=== PATIENT | female | born 1945 | race Caucasian/White ===

== ENCOUNTER → 2016-04-06 | Outpatient (REF) | payer MEDICARE, MEDICAID | LOC: M LAB REF 04-04 15:30 | PROVIDERS: ATTEND Internal Medicine | DX: N39.0 Urinary tract infection, site not specified (principal) ==

== ENCOUNTER → 2016-07-05 | Outpatient (REF) | payer MEDICARE, MEDICAID ==
[2016-07-05 10:44] LABS: ANION GAP 9 MEQ/L (8-16); BLOOD UREA NITROGEN 11 MG/DL (7-18); CALCIUM LEVEL 8.4 MG/DL (8.8-10.2); CARBON DIOXIDE LEVEL 27 MEQ/L (21-32); CHLORIDE LEVEL 105 MEQ/L (98-107); CREATININE FOR GFR 0.68 MG/DL (0.55-1.02); GLOMERULAR FILTRATION RATE > 60.0 (>45); GLUCOSE, FASTING 104 MG/DL (80-110); POTASSIUM SERUM 4.3 MEQ/L (3.5-5.1); SODIUM LEVEL 141 MEQ/L (136-145)
== END ==
LOC: M LAB REF 10:02
PROVIDERS: ATTEND Internal Medicine
DX: I10 Essential (primary) hypertension (principal); E78.2 Mixed hyperlipidemia; G30.9 Alzheimer's disease, unspecified

== ENCOUNTER → 2016-07-13 | Outpatient (REF) | payer MEDICARE, MEDICAID ==
[2016-07-13 21:05] LABS: BASO # 0.1 K/mm3 (0.0-0.2); BASO % 0.8 % (0.0-1.0); EOS # 0.3 K/mm3 (0.0-0.50); EOS % 3.8 % (0.0-3.0); LARGE UNSTAINED CELL # 0.2 K/mm3 (0.0-0.4); LARGE UNSTAINED CELL % 2.1 % (0.0-4.0); LYMPH # 2.5 K/mm3 (1.5-4.5); LYMPH % 33.4 % (24.0-44.0); MEAN CORPUSCULAR HEMOGLOBIN 31.4 pg (27.0-33.0); MEAN CORPUSCULAR HGB CONC 33.4 g/dl (32.0-36.5); MEAN CORPUSCULAR VOLUME 93.8 fl (80.0-96.0); MONO # 0.5 K/mm3 (0.0-0.8); MONO % 6.5 % (0.0-5.0); NEUTROPHILS # 3.9 K/mm3 (1.8-7.7); NEUTROPHILS % 53.4 % (36.0-66.0); PLATELET COUNT, AUTOMATED 311 k/mm3 (150-450); RED CELL DISTRIBUTION WIDTH 11.9 % (11.5-14.5); WHITE BLOOD COUNT 7.4 K/mm3 (4.0-10.0)
[2016-07-13 21:21] LABS: ALBUMIN 3.4 GM/DL (3.2-5.2); ALBUMIN/GLOBULIN RATIO 0.94 (1.00-1.93); BILIRUBIN,TOTAL 0.2 MG/DL (0.2-1.0); CALCIUM LEVEL 8.2 MG/DL (8.8-10.2); CREATININE FOR GFR 1.07 MG/DL (0.55-1.02); GLOMERULAR FILTRATION RATE 54.1 (>45)
== END ==
LOC: M LAB REF 20:13
PROVIDERS: ATTEND Internal Medicine
DX: G30.9 Alzheimer's disease, unspecified (principal)

== ENCOUNTER → 2016-08-25 | Outpatient (REF) | payer MEDICARE, MEDICAID ==
[2016-08-25 19:51] LABS: ALBUMIN 3.3 GM/DL (3.2-5.2); ALBUMIN/GLOBULIN RATIO 0.92 (1.00-1.93); ALKALINE PHOSPHATASE 77 U/L (45-117); ALT/SGPT 24 U/L (12-78); ANION GAP 5 MEQ/L (8-16); AST/SGOT 20 U/L (15-37); BILIRUBIN,TOTAL 0.2 MG/DL (0.2-1.0); BLOOD UREA NITROGEN 15 MG/DL (7-18); CALCIUM LEVEL 8.3 MG/DL (8.8-10.2); CARBON DIOXIDE LEVEL 30 MEQ/L (21-32); CHLORIDE LEVEL 106 MEQ/L (98-107); CREATININE FOR GFR 0.66 MG/DL (0.55-1.02); GLOMERULAR FILTRATION RATE > 60.0 (>45); GLUCOSE, FASTING 98 MG/DL (80-110); POTASSIUM SERUM 4.1 MEQ/L (3.5-5.1); SODIUM LEVEL 141 MEQ/L (136-145); TOTAL PROTEIN 6.9 GM/DL (6.4-8.2)
== END ==
LOC: M LAB REF 14:00
PROVIDERS: ATTEND Internal Medicine
DX: G30.9 Alzheimer's disease, unspecified (principal)

== ENCOUNTER 2016-12-08 12:42 | Emergency (ER) | payer MEDICARE, MEDICAID ==
[~2016-12-08] VITALS: Ht 165.1 cm; Wt 80.9 kg
[2016-12-08] MEDS ORDERED: SERT50TA PO (13:00)
[2016-12-08] MEDS ORDERED: VALP250S PO (13:00)
[2016-12-08] MEDS ORDERED: DONETAB6 PO (13:00)
[2016-12-08] MEDS ORDERED: RISP1SOL PO (13:00)
[2016-12-08] MEDS ORDERED: AMLO5TAB2 PO (13:00)
[2016-12-08 13:10] VITALS: BP 138/65
--- NOTE | 2016-12-08 14:32 | REP ---
PELVIS BILATERAL HIP STUDY: FIVE VIEWS. HISTORY: Trauma. FINDINGS: AP view of the pelvis and AP and frog-leg views of both hips are obtained. The bony pelvic ring is intact. No pelvic fracture is seen. No hip fracture is observed on either side. Femoral heads are smooth and rounded, and hip joint spaces are preserved. There is trochanteric spurring visible bilaterally affecting the greater trochanters. Incidental note is made of a 4.0 cm spherical soft tissue density in the subcutaneous fat lateral to the right proximal femur. This is of uncertain significance. Also noted is a 2.2 cm irregular calcification in the left pelvis which is most likely calcification in a lymph node. Less likely urinary tract calcification. IMPRESSION: 1. No evidence of hip fracture or pelvic fracture on either side. 2. Bilateral greater trochanteric spurring. 3. A 4 cm spherical soft tissue mass projecting in the subcutaneous fat lateral to the proximal femur on the right side. Uncertain significance. 4. Irregular calcific density left hemipelvis 2.2 cm in greatest diameter most likely calcified lymph node. Less likely urinary tract calculus. Signed by Ralph López MD 12/08/2016 03:58 P
--- NOTE | 2016-12-12 10:52 | ED PDOC ---
Post-Departure Follow-Up bilateral hip films faxed formal report to dr blake. Omar Waggoner MD Dec 12, 2016 10:52
== END 2016-12-08 14:42 | disposition home or self-care (01) ==
LOC: M ED 12:42
DX: S70.10XA Contusion of unspecified thigh, initial encounter (principal); X58.XXXA Exposure to other specified factors, initial encounter; Y92.89 Other specified places as the place of occurrence of the external cause; Y93.89 Activity, other specified; Y99.8 Other external cause status; D17.39 Benign lipomatous neoplasm of skin and subcutaneous tissue of other sites; I10 Essential (primary) hypertension

== ENCOUNTER → 2016-12-22 | Outpatient (REF) | payer MEDICARE, MEDICAID ==
[~2016-12-22] MED LIST: AMLO5TAB2 PO; DONETAB6 PO; RISP1SOL PO; SERT50TA PO; VALP250S PO
[2016-12-22 09:51] LABS: BASO % 0.6 % (0.0-1.0); EOS # 0.5 10^3/uL (0.0-0.50); EOS % 8.9 % (0.0-3.0); IMMATURE GRANULOCYTE % 0.2 % (0-0); LYMPH # 1.9 10^3/uL (1.5-4.5); LYMPH % 36.4 % (24.0-44.0); MEAN CORPUSCULAR HEMOGLOBIN 31.8 pg (27.0-33.0); MEAN CORPUSCULAR HGB CONC 33.4 g/dl (32.0-36.5); MEAN CORPUSCULAR VOLUME 95.1 fl (80.0-96.0); MONO # 0.9 10^3/uL (0.0-0.8); MONO % 16.8 % (0.0-5.0); NEUTROPHILS # 1.9 10^3/uL (1.8-7.7); NEUTROPHILS % 37.1 % (36.0-66.0); PLATELET COUNT, AUTOMATED 185 10^3/uL (150-450); RED CELL DISTRIBUTION WIDTH 12.8 % (11.5-14.5); WHITE BLOOD COUNT 5.2 10^3/uL (4.0-10.0)
[2016-12-22 10:41] LABS: ALBUMIN 2.5 GM/DL (3.2-5.2); ALBUMIN/GLOBULIN RATIO 0.69 (1.00-1.93); ALKALINE PHOSPHATASE 60 U/L (45-117); ALT/SGPT 16 U/L (12-78); ANION GAP 5 MEQ/L (8-16); AST/SGOT 23 U/L (15-37); BILIRUBIN,TOTAL 0.4 MG/DL (0.2-1.0); BLOOD UREA NITROGEN 17 MG/DL (7-18); CALCIUM LEVEL 8.4 MG/DL (8.8-10.2); CARBON DIOXIDE LEVEL 33 MEQ/L (21-32); CHLORIDE LEVEL 105 MEQ/L (98-107); CREATININE FOR GFR 0.55 MG/DL (0.55-1.02); GLOMERULAR FILTRATION RATE > 60.0 (>45); GLUCOSE, FASTING 78 MG/DL (80-110); POTASSIUM SERUM 4.2 MEQ/L (3.5-5.1); SODIUM LEVEL 143 MEQ/L (136-145); TOTAL PROTEIN 6.1 GM/DL (6.4-8.2)
== END ==
LOC: M LAB REF 12-21 09:28
PROVIDERS: ATTEND Internal Medicine
DX: G30.9 Alzheimer's disease, unspecified (principal)

== ENCOUNTER 2018-11-12 23:51 | Inpatient (IN) | payer MEDICARE, BC, MEDICAID ==
[~2018-11-12] VITALS: Ht 162.6 cm; Wt 75.8 kg
[~2018-11-12 23:51] MED LIST changes: -AMLO5TAB2 PO; +AMLO5TAB6 PO; +SERT-141 PO; -SERT50TA PO
[2018-11-13] MEDS ORDERED: QUET1TAB7 PO ×2 (00:04→04:29)
[2018-11-13 00:54] LABS: BASO # 0.1 10^3/uL (0.0-0.2); BASO % 0.3 % (0.0-1.0); HEMOGLOBIN 13.2 g/dl (12.0-15.5); LYMPH # 1.8 10^3/uL (1.5-5.0); LYMPH % 5.7 % (24.0-44.0); MEAN CORPUSCULAR HEMOGLOBIN 32.1 pg (27.0-33.0); MEAN CORPUSCULAR HGB CONC 34.7 g/dl (32.0-36.5); MEAN CORPUSCULAR VOLUME 92.5 fl (80.0-96.0); MONO % 6.4 % (0.0-5.0); NEUTROPHILS % 87.1 % (36.0-66.0); PLATELET COUNT, AUTOMATED 206 10^3/uL (150-450); RED BLOOD COUNT 4.11 10^6/uL (4.00-5.40)
[2018-11-13 01:16] LABS: ALT/SGPT 15 U/L (12-78); BILIRUBIN,DIRECT 0.1 MG/DL (0.0-0.2); BILIRUBIN,TOTAL 0.6 MG/DL (0.2-1.0); BLOOD UREA NITROGEN 18 MG/DL (7-18); CALCIUM LEVEL 8.8 MG/DL (8.8-10.2); CARBON DIOXIDE LEVEL 27 MEQ/L (21-32); CHLORIDE LEVEL 101 MEQ/L (98-107); CREATININE FOR GFR 0.71 MG/DL (0.55-1.30); GLOMERULAR FILTRATION RATE > 60.0 (>39); GLUCOSE, FASTING 124 MG/DL (70-100); LIPASE 68 U/L (73-393); POTASSIUM SERUM 4.1 MEQ/L (3.5-5.1); SODIUM LEVEL 137 MEQ/L (136-145); TOTAL PROTEIN 6.7 GM/DL (6.4-8.2)
[2018-11-13] MEDS ORDERED: ISOVUE-370 76% 100ML VIAL (Q9967) As Ordered ONE (02:06)
[2018-11-13] MEDS: NS 1,000 ML IV SCH ×4 (03:09→21:33)
--- NOTE | 2018-11-13 03:27 | REPVR ---
EXAM: CT Abdomen and Pelvis With Contrast EXAM DATE/TIME: 11/13/2018 2:01 AM CLINICAL HISTORY: 73 years old, female; Fever and vomiting; Additional info: Vomiting, fever TECHNIQUE: Imaging protocol: Computed tomography of the abdomen and pelvis with intravenous contrast. Radiation optimization: All CT scans at this facility use at least one of these dose optimization techniques: automated exposure control; mA and/or kV adjustment per patient size (includes targeted exams where dose is matched to clinical indication); or iterative reconstruction. Contrast material: ISO; Contrast volume: 100 ml; Contrast route: HAND; COMPARISON: CR HIPS BILAT W-AP PELVIS 12/08/2016 1:21 PM FINDINGS: Lungs: Bilateral mild groundglass densities of the lungs likely edema. No focal consolidation. Heart: Cardiomegaly partially seen. Liver: Mild diffuse fatty infiltration of liver. Gallbladder and bile ducts: Normal. No calcified stones. No ductal dilation. Pancreas: Normal. No ductal dilation. Spleen: Normal. No splenomegaly. Adrenals: Normal. No mass. Kidneys and ureters: Normal. No hydronephrosis. Stomach and bowel: Unremarkable. No obstruction. No mucosal thickening. Appendix: Base of the appendix measures 7.3 mm. Distal and mid appendix is unremarkable. No surrounding inflammatory changes. Intraperitoneal space: Unremarkable. No free air. No significant fluid collection. Vasculature: Unremarkable. No abdominal aortic aneurysm. Lymph nodes: Unremarkable. No enlarged lymph nodes. Bladder: Unremarkable as visualized. Reproductive: Enlarged uterus with multiple calcifications likely degenerative fibroids. Cyst in the right ovary measuring 17 x 17 mm. Findings abdomen for the patient's age, further evaluation with a nonemergent ultrasound and SHUTTLER CAR consult is recommended. Left adnexa is unremarkable. Bones/joints: Diffuse demineralization of the bones with degenerative changes. Levoscoliosis of the thoracolumbar spine. Soft tissues: Subcutaneous nodule in the right gluteal region measuring 13 mm may represent sebaceous cysts. IMPRESSION: Enlarged uterus with multiple calcifications likely degenerative fibroids. Cyst in the right ovary measuring 17 x 17 mm. Findings abdomen for the patient's age, further evaluation with a nonemergent ultrasound and SHUTTLER CAR consult is recommended. Left adnexa is unremarkable. Base of the appendix measures 7.3 mm. Distal and mid appendix is unremarkable. No surrounding inflammatory changes. Findings are nonspecific. No bowel dilatation or obstruction. Electronically signed by: Barb Khoury On 11/13/2018 03:27:02 AM
[2018-11-13] MEDS ORDERED: cefTRIAXone SOD 1 GM in D5W MINI-BAG PLUS 50 ML IV ONE (03:45)
[2018-11-13] MEDS ORDERED: MOM 30ML SUSPENSION UDC PO PRN (04:15)
[2018-11-13] MEDS ORDERED: ACETAMINOPHEN TAB 650MG DOSE (2X325MG) PO PRN (04:15)
--- NOTE | 2018-11-13 04:19 | HPEPDOC ---
[facility] Medical History & Physical Date of Admission Nov 13, 2018 Date of Service: Nov 13, 2018 History and Physical CHIEF COMPLAINT: Emesis and fever HISTORY OF PRESENT ILLNESS: Patient is a 73 yo female with PMH of postmenopausal bleeding and Alzheimer's disease due to 3 episodes of brown color emesis the day prior to admission. Fever was also noted. Pt is non-verbal at baseline due to dementia; the staff/nun that accompanies her to the ER provided the info above but no further info was able to be obtained and no other symptoms were noted PAST MEDICAL HISTORY: 1. Endometrial polyp 2. Post menopausal bleeding 3. Leiomyomata uteri 4. Tonsillectomy PAST SURGICAL HISTORY: 1. Excision of polyp 2. Dilatation and curettage 3. Suturing of cervix FAMILY HISTORY: Maternal grandmother has iabetes, Father from a ruptured aortic aneurysm. Mother had lung cancer. ALLERGIES: Please see below. REVIEW OF SYSTEMS: Limited ROS was able to be obtained d/t patient's baseline mental status and available info from staff who accompanied her CONSTITUTIONAL: Pos for fever GASTROINTESTINAL: Pos for 3 episodes of emesis HOME MEDICATIONS: Please see below. PHYSICAL EXAMINATION: GENERAL APPEARANCE: Alert, eyes open spontaneously, not in acute distress HEENT: Head normocephalic, atraumatic CARDIOVASCULAR: RRR, no murmur, normal S1 and S2 LUNGS: CTA b/l, no rales, wheezing, or rhonchi ABDOMEN: soft, bowel sound aus in all 4 quad, no distention or guarding EXTREMITIES: radial pulse equal b/l NEUROLOGICAL: Patient non-verbal which was reported to be baseline, not following commands LABORATORY DATA: See below. IMAGING: CT abd/pelvis with IV contrast showed enlarged uterus, multiple calcifications likely degenerative fibroids. Right ovary cyst measuring 17 x 17 mm. Further evaluation with a nonemergent ultrasound and CARBON PAPER MACHINE OPERATOR consult is recommended. MICROBIOLOGY: Please see below. Assessment and Plan 1. UTI -fever, emesis, leukocytosis, UA pos for nitrite and leuk -IV ceftriaxone pending urine Cx -lactic acid and blood cx pending -IVNS 150ml/hr. Zofran PRN 2. Right ovary cyst measuring 17 x 17 mm -shown on CT abd/pelvis -consider f/u outpt 3. Alzheimer's dementia -non-verbal and not following commands, reported to be at baseline -NPO except for meds until bedside swallow study -fall precaution DVT prophylaxis SCD, TEDS, lovenox Vital Signs Vital Signs Date Time Temp Pulse Resp B/P (MAP) Pulse Ox O2 Delivery O2 Flow Rate FiO2 11/13/18 03:04 98.9 82 19 140/90 (107) 95 11/12/18 23:59 Room Air Laboratory Data Labs 24H Laboratory Tests 2 11/13/18 00:44: Immature Granulocyte % (Auto) 0.5, White Blood Count 31.0*H, Red Blood Count 4.11, Hemoglobin 13.2, Hematocrit 38.0, Mean Corpuscular Volume 92.5, Mean Corpuscular Hemoglobin 32.1, Mean Corpuscular Hemoglobin Concent 34.7, Red Cell Distribution Width 11.3L, Platelet Count 206, Neutrophils (%) (Auto) 87.1H, Lym phocytes (%) (Auto) 5.7L, Monocytes (%) (Auto) 6.4H, Eosinophils (%) (Auto) 0.0, Basophils (%) (Auto) 0.3, Neutrophils # (Auto) 27.0H, Lymphocytes # (Auto) 1.8, Monocytes # (Auto) 2.0H, Eosinophils # (Auto) 0.0, Basophils # (Auto) 0.1, Nucleated Red Blood Cells % (auto) 0.0, Anion Gap 9, Glomerular Filtration Rate > 60.0, Calcium Level 8.8, Aspartate Amino Transf (AST/SGOT) 25, Alanine Aminotransferase (ALT/SGPT) 15, Alkaline Phosphatase 71, Total Bilirubin 0.6, Direct Bilirubin 0.1, Total Protein 6.7, Albumin 3.0L, Albumin/Globulin Ratio 0.81L, Lipase 68L 11/13/18 03:00: Urine Color YELLOW, Urine Appearance HAZY, Urine pH 8.0, Urine Specific Mar Lin 1.043, Urine Protein NEGATIVE, Urine Glucose (UA) NEGATIVE, Urine Ketones NEGATIVE, Urine Blood NEGATIVE, Urine Nitrite POSITIVEH, Urine Bilirubin NEGATIVE, Urine Urobilinogen 0.2, Urine Leukocyte Esterase 3+H, Urine WBC (Auto) 61H, Urine RBC (Auto) 1, Urine Hyaline Casts (Auto) 0, Urine Bacteria (Auto) 2+H, Urine Squamous Epithelial Cells 0, Urine Mucus (Auto) SMALL, Urine Sperm (Auto) CBC/BMP Laboratory Tests 11/13/18 00:44 Red Blood Count 4.11, Mean Corpuscular Volume 92.5, Mean Corpuscular Hemoglobin 32.1, Mean Corpuscular Hemoglobin Concent 34.7, Red Cell Distribution Width 11.3 L, Neutrophils (%) (Auto) 87.1 H, Lymphocytes (%) (Auto) 5.7 L, Monocytes (%) (Auto) 6.4 H, Eosinophils (%) (Auto) 0.0, Basophils (%) (Auto) 0.3, Neutrophils # (Auto) 27.0 H, Lymphocytes # (Auto) 1.8, Monocytes # (Auto) 2.0 H, Eosinophils # (Auto) 0.0, Basophils # (Auto) 0.1 Microbiology Microbiology 11/13/18 Urine Culture, Received Pending Home Medications Scheduled Polyethylene Glycol 3350 (Miralax) 17 Gm Powd.pack, 17 GM PO DAILY AFTER 3 DAYS NO BM Quetiapine Fumarate (Quetiapine Fumarate) 25 Mg Tablet, 25 MG PO QHS Sertraline HCl (Sertraline HCl) 50 Mg Tablet, 50 MG PO QHS Valproic Acid (As Sodium Salt) (Valproic Acid) 250 Mg/5 Ml Solution, 500 MG PO QHS Scheduled PRN Lactose-Reduced Food (Ensure Original) 237 Ml Liquid, 237 ML PO TID PRN for MEAL REPLACEMENT Lorazepam (Lorazepam) 2 Mg Tablet, 2 MG PO QID PRN for SEIZURES COULD BE GIVEN EVERY 15 MINUTES Allergies Coded Allergies: lisinopril (Verified Allergy, Mild, RASH, 11/13/18) A-FIB/CHADSVASC A-FIB History Current/History of A-Fib/PAF?: No CARMEN MAYO DO Nov 13, 2018 04:19 MARY CARMEN LE DO Nov 13, 2018 05:49
[2018-11-13] MEDS ORDERED: LORA2TAB14 PO (04:29)
[2018-11-13] MEDS ORDERED: VALP250S PO (04:29)
[2018-11-13] MEDS ORDERED: ENSULIQ19 PO (04:29)
[2018-11-13] MEDS ORDERED: SERT50TA29 PO (04:29)
[2018-11-13] MEDS ORDERED: MIRA1POW3 PO (04:29)
[2018-11-13] MEDS ORDERED: ONDANSETRON 4MG/2ML VIAL (J2405) IV PRN (04:30)
[2018-11-13] MEDS ORDERED: LORazepam 2 MG TAB PO PRN (04:45)
[2018-11-13 07:35] VITALS: BP 121/72
[2018-11-13] MEDS: HEPARIN SOD (PORCINE) 5000 UNITS/ML VIAL SC SCH ×2 (07:47→22:19)
[2018-11-13] MEDS: MIRALAX *UNIT DOSE* 17GM PACKET PO SCH (07:47)
[2018-11-13 14:00] VITALS: BP 122/72
[2018-11-13 22:00] VITALS: BP 113/70
[2018-11-13] MEDS: SERTRALINE HCL 50 MG TAB PO SCH (22:19)
[2018-11-13] MEDS: QUEtiapine FUMARATE 25 MG TAB PO SCH (22:19)
[2018-11-13] MEDS: VALPROIC ACID SYRUP 250 MG/5 ML UDC PO SCH (22:20)
[2018-11-13] MEDS ORDERED: LORazepam 2 MG/ML VIAL (J2060) IV PRN (23:15)
[2018-11-14] MEDS: NS 1,000 ML IV SCH ×3 (03:49→17:38)
[2018-11-14] MEDS: cefTRIAXone SOD 1 GM in D5W MINI-BAG PLUS 50 ML IV SCH (03:49)
[2018-11-14 06:00] VITALS: BP 129/77
[2018-11-14 06:36] LABS: HEMATOCRIT 32.6 % (36.0-47.0); MEAN CORPUSCULAR HGB CONC 33.7 g/dl (32.0-36.5); MEAN CORPUSCULAR VOLUME 94.8 fl (80.0-96.0); PLATELET COUNT, AUTOMATED 168 10^3/uL (150-450); RED BLOOD COUNT 3.44 10^6/uL (4.00-5.40); WHITE BLOOD COUNT 11.4 10^3/uL (4.0-10.0)
[2018-11-14 06:58] LABS: ALBUMIN 2.7 GM/DL (3.2-5.2); ALT/SGPT 11 U/L (12-78); BILIRUBIN,TOTAL 0.2 MG/DL (0.2-1.0); BLOOD UREA NITROGEN 11 MG/DL (7-18); CALCIUM LEVEL 8.1 MG/DL (8.8-10.2); CARBON DIOXIDE LEVEL 27 MEQ/L (21-32); CHLORIDE LEVEL 109 MEQ/L (98-107); CREATININE FOR GFR 0.61 MG/DL (0.55-1.30); GLOMERULAR FILTRATION RATE > 60.0 (>39); GLUCOSE, FASTING 88 MG/DL (70-100); POTASSIUM SERUM 3.9 MEQ/L (3.5-5.1); SODIUM LEVEL 142 MEQ/L (136-145); TOTAL PROTEIN 6.5 GM/DL (6.4-8.2); VALPROIC ACID (DEPAKOTE) 43.7 UG/ML (50.0-100.0)
[2018-11-14] MEDS: HEPARIN SOD (PORCINE) 5000 UNITS/ML VIAL SC SCH ×2 (08:01→21:59)
[2018-11-14] MEDS: MIRALAX *UNIT DOSE* 17GM PACKET PO SCH (08:02)
[2018-11-14 14:00] VITALS: BP 124/85
[2018-11-14] MEDS: VALPROIC ACID SYRUP 250 MG/5 ML UDC PO SCH (21:58)
[2018-11-14] MEDS: QUEtiapine FUMARATE 25 MG TAB PO SCH (21:59)
[2018-11-14] MEDS: SERTRALINE HCL 50 MG TAB PO SCH (21:59)
[2018-11-14 22:00] VITALS: BP 126/84
--- NOTE | 2018-11-14 23:07 | IPNPDOC ---
Text Note Date of Service The patient was seen on 11/14/18. NOTE Subjective: Non verbal patient. Can corroborate that she did not express disc omfort or confirm any discomfort. Her friend from the [facility] was visiting and reported that while it is difficult to assess if she is better, she is more awake. Objective: Vitals: see below GENERAL APPEARANCE: Alert, eyes open spontaneously, not in acute distress HEENT: Head normocephalic, atraumatic, anicteric, no pallor CARDIOVASCULAR: RRR, no murmur, normal S1 and S2 LUNGS: CTA b/l, no rales, wheezing, or rhonchi ABDOMEN: soft, bowel sound aus in all 4 quad, no distention or guarding on deep palpation EXTREMITIES: warm and well perfused with good pulses and no edema NEUROLOGICAL: Patient non-verbal which was reported to be baseline, not following commands LABORATORY DATA: See below. IMAGING: CT abd/pelvis with IV contrast showed enlarged uterus, multiple calcifications likely degenerative fibroids. Right ovary cyst measuring 17 x 17 mm. Further evaluation with a nonemergent ultrasound and FITNESS AND WELLNESS INSTRUCTOR consult is recommended. MICROBIOLOGY: Please see below. 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 1. UTI -fever, emesis, leukocytosis, UA pos for nitrite and leuk -IV ceftriaxone pending urine Cx -blood cx negative to date 2. Right ovary cyst measuring 17 x 17 mm -shown on CT abd/pelvis -f/u outpt 3. Alzheimer's dementia -non-verbal and not following commands, reported to be at baseline -fall precaution DVT prophylaxis SCD, TEDS, lovenox VS,Fishbone, I+O VS, Fishbone, I+O Laboratory Tests 11/14/18 06:01 Red Blood Count 3.44 L, Mean Corpuscular Volume 94.8, Mean Corpuscular Hemoglobin 32.0, Mean Corpuscular Hemoglobin Concent 33.7, Red Cell Distribution Width 11.6, Calcium Level 8.1 L, Aspartate Amino Transf (AST/SGOT) 15, Alanine Aminotransferase (ALT/SGPT) 11 L, Alkaline Phosphatase 59, Total Bilirubin 0.2 #, Total Protein 6.5, Albumin 2.7 L Vital Signs Date Time Temp Pulse Resp B/P (MAP) Pulse Ox O2 Delivery O2 Flow Rate FiO2 11/14/18 14:00 97.9 66 17 124/85 (98) 93 11/13/18 07:28 Room Air I&O- Last 24 Hours up to 6 AM 11/14/18 06:00 Intake Total 1050 ml Output Total 0 ml Balance 1050 ml PARAG TALAMANTES MD Nov 14, 2018 23:07
[2018-11-15] MEDS: NS 1,000 ML IV SCH ×3 (00:08→13:57)
[2018-11-15] MEDS: cefTRIAXone SOD 1 GM in D5W MINI-BAG PLUS 50 ML IV SCH (03:27)
[2018-11-15 06:00] VITALS: BP 130/70
[2018-11-15 07:09] LABS: HEMATOCRIT 30.8 % (36.0-47.0); HEMOGLOBIN 10.1 g/dl (12.0-15.5); MEAN CORPUSCULAR HEMOGLOBIN 31.6 pg (27.0-33.0); MEAN CORPUSCULAR HGB CONC 32.8 g/dl (32.0-36.5); MEAN CORPUSCULAR VOLUME 96.3 fl (80.0-96.0); PLATELET COUNT, AUTOMATED 163 10^3/uL (150-450); WHITE BLOOD COUNT 6.9 10^3/uL (4.0-10.0)
[2018-11-15 07:26] LABS: BLOOD UREA NITROGEN 7 MG/DL (7-18); CALCIUM LEVEL 8.3 MG/DL (8.8-10.2); CARBON DIOXIDE LEVEL 21 MEQ/L (21-32); CHLORIDE LEVEL 114 MEQ/L (98-107); GLOMERULAR FILTRATION RATE > 60.0 (>39); GLUCOSE, FASTING 82 MG/DL (70-100); POTASSIUM SERUM 3.8 MEQ/L (3.5-5.1); SODIUM LEVEL 143 MEQ/L (136-145)
[2018-11-15] MEDS: HEPARIN SOD (PORCINE) 5000 UNITS/ML VIAL SC SCH (08:46)
[2018-11-15] MEDS: MIRALAX *UNIT DOSE* 17GM PACKET PO SCH (08:46)
[2018-11-15] MEDS ORDERED: BACTRIM 160MG/800MG DS TAB PO SCH (09:00)
[2018-11-15] MEDS ORDERED: SULF1TAB93 PO (11:54)
--- NOTE | 2018-11-15 19:17 | DS.PDOC ---
Discharge Summary General Date of Admission Nov 13, 2018 at 05:42 Date of Discharge 11/15/2018 Attending Physician: PARAG TALAMANTES MD Discharge Summary PROCEDURES PERFORMED DURING STAY: [None]. ADMITTING DIAGNOSES: 1. Pyelonephritis DISCHARGE DIAGNOSES: 1. 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 HOSPITAL COURSE: In the ED she was found to have a positive UA while a CT A/P showed an incidental large ovarian cyst while her WBC was 31 and predominantly PMNs. Blood and urine cultures were collected and she was started on ceftriaxone. She was admitted to the floor where she was started on fluids. By day 2, her leukocytosis greatly improved and she was maintained on ceftriaxone while the urine culture was pending. Blood cultures were eventually negative while the urine culture grew E.coli that was sensitive to Bactrim. 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 The rest of her course was otherwise unremarkable and her baseline medication were continued as described below: 1. Cystitis -fever, emesis, leukocytosis, UA pos for nitrite and leuk -Was treated with IV ceftriaxone and switched to Bactrim to finish a 14 day course at home -blood cultures were negative 2. A right ovary cyst measuring 17 x 17 mm was incidentally noted on the CT abdomen pelvis and was deferred for outpatient investigations and management 3. Alzheimer's dementia, depression -non-verbal and not following commands, reported to be at baseline -continued home quetiapine, sertraline, valproic acid and PRN lorazepam DISCHARGE MEDICATIONS: Please see below. ALLERGIES: Please see below. PHYSICAL EXAMINATION ON DISCHARGE: VITAL SIGNS: Please see below. GENERAL APPEARANCE: Alert, eyes open spontaneously, not in acute distress HEENT: Head normocephalic, atraumatic, anicteric, no pallor CARDIOVASCULAR: RRR, no murmur, normal S1 and S2 LUNGS: CTA b/l, no rales, wheezing, or rhonchi ABDOMEN: soft, bowel sound aus in all 4 quad, no distention or guarding on deep palpation EXTREMITIES: warm and well perfused with good pulses and no edema NEUROLOGICAL: Patient non-verbal which was reported to be baseline, not following commands LABORATORY DATA: Please see below. IMAGING: CT abdomen pelvis: FINDINGS: Lungs: Bilateral mild groundglass densities of the lungs likely edema. No focal consolidation. Heart: Cardiomegaly partially seen. Liver: Mild diffuse fatty infiltration of liver. Gallbladder and bile ducts: Normal. No calcified stones. No ductal dilation. Pancreas: Normal. No ductal dilation. Spleen: Normal. No splenomegaly. Adrenals: Normal. No mass. Kidneys and ureters: Normal. No hydronephrosis. Stomach and bowel: Unremarkable. No obstruction. No mucosal thickening. Appendix: Base of the appendix measures 7.3 mm. Distal and mid appendix is unremarkable. No surrounding inflammatory changes. Intraperitoneal space: Unremarkable. No free air. No significant fluid collection. Vasculature: Unremarkable. No abdominal aortic aneurysm. Lymph nodes: Unremarkable. No enlarged lymph nodes. Bladder: Unremarkable as visualized. Reproductive: Enlarged uterus with multiple calcifications likely degenerative fibroids. Cyst in the right ovary measuring 17 x 17 mm. Findings abdomen for the patient's age, further evaluation with a nonemergent ultrasound and CRIMINAL DEFENSE LAWYER consult is recommended. Left adnexa is unremarkable. Bones/joints: Diffuse demineralization of the bones with degenerative changes. Levoscoliosis of the thoracolumbar spine. Soft tissues: Subcutaneous nodule in the right gluteal region measuring 13 mm may represent sebaceous cysts. IMPRESSION: Enlarged uterus with multiple calcifications likely degenerative fibroids. Cyst in the right ovary measuring 17 x 17 mm. Findings abdomen for the patient's age, further evaluation with a nonemergent ultrasound and CRIMINAL DEFENSE LAWYER consult is recommended. Left adnexa is unremarkable. Base of the appendix measures 7.3 mm. Distal and mid appendix is unremarkable. No surrounding inflammatory changes. Findings are nonspecific. No bowel dilatation or obstruction. PROGNOSIS: good from an infection status point, however fair overall given end stage Alzheimers ACTIVITY: As tolerated DIET: Regular DISCHARGE PLAN: Home DISPOSITION: 01 Home, Self-Care. DISCHARGE INSTRUCTIONS: 1. Please accompany patient to be seen by PCP within 10 days of discharge ITEMS TO FOLLOWUP ON ON OUTPATIENT: 1. Resolution of cystitis DISCHARGE CONDITION: Stable TIME SPENT ON DISCHARGE: Greater than 30 minutes. Vital Signs/I&Os Vital Signs Date Time Temp Pulse Resp B/P (MAP) Pulse Ox O2 Delivery O2 Flow Rate FiO2 11/15/18 06:00 98.0 69 18 130/70 (90) 94 11/13/18 07:28 Room Air I&O- Last 24 Hours up to 6 AM 11/15/18 06:00 Intake Total 1985 ml Output Total 0 ml Balance 1985 ml Laboratory Data Labs 24H Laboratory Tests 2 11/15/18 06:16: Nucleated Red Blood Cells % (auto) 0.0, Anion Gap 8, Glomerular Filtration Rate > 60.0, Blood Urea Nitrogen 7, Creatinine 0.50L, Sodium Level 143, Potassium Level 3.8, Chloride Level 114H, Carbon Dioxide Level 21, Calcium Level 8.3L CBC/BMP Laboratory Tests 11/15/18 06:16 Red Blood Count 3.20 L, Mean Corpuscular Volume 96.3 H, Mean Corpuscular Hemoglobin 31.6, Mean Corpuscular Hemoglobin Concent 32.8, Red Cell Distribution Width 11.6, Calcium Level 8.3 L Microbiology Microbiology 11/13/18 Blood Culture - Preliminary, Resulted No Growth after 48 hours. All Specime... 11/13/18 Blood Culture - Preliminary, Resulted No Growth after 48 hours. All Specime... 11/14/18 Stool Occult Blood (AMANDA) - Final, Complete 11/13/18 Urine Culture - Final, Complete Escherichia Coli Discharge Medications Scheduled Polyethylene Glycol 3350 (Miralax) 17 Gm Powd.pack, 17 GM PO DAILY, (Reported) AFTER 3 DAYS NO BM Quetiapine Fumarate (Quetiapine Fumarate) 25 Mg Tablet, 25 MG PO QHS, (Reported) Sertraline HCl (Sertraline HCl) 50 Mg Tablet, 50 MG PO QHS, (Reported) Sulfamethoxazole/Trimethoprim (Sulfamethoxazole-Tmp Ds Tablet) 1 Each Tablet, 1 TAB PO BID Valproic Acid (As Sodium Salt) (Valproic Acid) 250 Mg/5 Ml Solution, 500 MG PO QHS, (Reported) Scheduled PRN Lactose-Reduced Food (Ensure Original) 237 Ml Liquid, 237 ML PO TID PRN for MEAL REPLACEMENT, (Reported) Lorazepam (Lorazepam) 2 Mg Tablet, 2 MG PO QID PRN for SEIZURES, (Reported) COULD BE GIVEN EVERY 15 MINUTES Allergies Coded Allergies: lisinopril (Verified Allergy, Mild, RASH, 11/13/18) PARAG TALAMANTES MD Nov 15, 2018 19:17
== END 2018-11-15 14:06 | disposition home or self-care (01) | DRG 690 ==
LOC: M ED 23:51 → M ED INP 11-13 05:42 → M MSPAV 11-13 07:34
PROVIDERS: ADMIT Internal Medicine; ATTEND Internal Medicine
DX: N30.00 Acute cystitis without hematuria (principal); N10 Acute pyelonephritis; F02.80 Dementia in other diseases classified elsewhere, unspecified severity, without behavioral disturbance, psychotic disturbance, mood disturbance, and anxiety; N83.201 Unspecified ovarian cyst, right side; B96.20 Unspecified Escherichia coli [E. coli] as the cause of diseases classified elsewhere; G30.9 Alzheimer's disease, unspecified; Z79.899 Other long term (current) drug therapy; Z88.8 Allergy status to other drugs, medicaments and biological substances

== ENCOUNTER 2018-11-19 17:30 | Observation (INO) | payer MEDICARE, MEDICAID ==
[~2018-11-19] VITALS: Ht 162.6 cm; Wt 73.2 kg
[~2018-11-19 17:30] MED LIST changes: +ENSULIQ19 PO; +LORA2TAB9 PO; +MIRA1POW3 PO; +QUET1TAB7 PO; +SERT-155 PO; +SULF1TAB93 PO
[2018-11-19] MEDS ORDERED: NS 1,000 ML IV SCH (17:35)
[2018-11-19 17:56] LABS: BASO # 0.1 10^3/uL (0.0-0.2); BASO % 0.6 % (0.0-1.0); EOS # 0.2 10^3/uL (0.0-0.5); EOS % 2.2 % (0.0-3.0); HEMATOCRIT 34.7 % (36.0-47.0); HEMOGLOBIN 11.5 g/dl (12.0-15.5); LYMPH # 1.3 10^3/uL (1.5-5.0); LYMPH % 11.6 % (24.0-44.0); MEAN CORPUSCULAR HEMOGLOBIN 31.9 pg (27.0-33.0); MEAN CORPUSCULAR HGB CONC 33.1 g/dl (32.0-36.5); MEAN CORPUSCULAR VOLUME 96.4 fl (80.0-96.0); MONO # 1.2 10^3/uL (0.0-0.8); MONO % 11.4 % (0.0-5.0); NEUTROPHILS % 73.7 % (36.0-66.0); PLATELET COUNT, AUTOMATED 249 10^3/uL (150-450); WHITE BLOOD COUNT 10.8 10^3/uL (4.0-10.0)
[2018-11-19 18:08] LABS: INR 1.04; PROTHROMBIN TIME 13.3 SECONDS (11.8-14.0)
[2018-11-19 18:19] LABS: ALT/SGPT 17 U/L (12-78); BILIRUBIN,DIRECT < 0.1 MG/DL (0.0-0.2); BILIRUBIN,TOTAL < 0.1 MG/DL (0.2-1.0); LIPASE 124 U/L (73-393); TOTAL PROTEIN 6.5 GM/DL (6.4-8.2)
--- NOTE | 2018-11-19 19:26 | ECGEPIP ---
[facility] - ED Test Date: 2018-11-19 Pat Name: MAURILIO TEE Department: Room: - Gender: Female Examination Proctor: ct : 1945 Requested By: Jordana Edwards Order Number: [id number] Reading MD: Emre Peterson Measurements Intervals [place] Rate: 88 P: 38 [place]: 171 QRS: 17 QRSD: 82 T: 14 QT: 372 QTc: 451 Interpretive Statements SINUS RHYTHM LOW QRS VOLTAGE IN PRECORDIAL LEADS NONSPECIFIC T-WAVE ABNORMALITY BASELINE ARTIFACT AFFECTS INTERPRETATION NO PRIORS FOR COMPARISON Electronically Signed on 11-19-2018 19:26:01 EDT by Emre Peterson
[2018-11-19 20:41] LABS: BLOOD UREA NITROGEN 10 MG/DL (7-18); CALCIUM LEVEL 8.4 MG/DL (8.8-10.2); CARBON DIOXIDE LEVEL 26 MEQ/L (21-32); CHLORIDE LEVEL 107 MEQ/L (98-107); CK-MB VALUE MASS 1.5 NG/ML (<3.6); CPK CREATINE PHOSPHOKINASE 57 U/L (26-192); CREATININE FOR GFR 0.79 MG/DL (0.55-1.30); GLOMERULAR FILTRATION RATE > 60.0 (>39); GLUCOSE, FASTING 95 MG/DL (70-100); MB/CK RELATIVE INDEX 2.63 (< OR =4); POTASSIUM SERUM 4.4 MEQ/L (3.5-5.1); SODIUM LEVEL 142 MEQ/L (136-145); TROPONIN I < 0.02 NG/ML (< 0.10)
[2018-11-19] MEDS: SERTRALINE HCL 50 MG TAB PO SCH (21:00)
[2018-11-19] MEDS: VALPROIC ACID SYRUP 250 MG/5 ML UDC PO SCH (21:00)
[2018-11-19] MEDS: QUEtiapine FUMARATE 25 MG TAB PO SCH (21:00)
[2018-11-19] MEDS ORDERED: ISOVUE-370 76% 100ML VIAL (Q9967) As Ordered ONE (21:20)
[2018-11-19] MEDS ORDERED: BACTRIM 160MG/800MG DS TAB PO ONE (21:30)
--- NOTE | 2018-11-19 22:20 | REPVR ---
EXAM: CT Abdomen and Pelvis With Contrast EXAM DATE/TIME: 11/19/2018 9:43 PM CLINICAL HISTORY: 73 years old, female; Abdominal pain; Generalized TECHNIQUE: Imaging protocol: Computed tomography of the abdomen and pelvis with intravenous contrast. Radiation optimization: All CT scans at this facility use at least one of these dose optimization techniques: automated exposure control; mA and/or kV adjustment per patient size (includes targeted exams where dose is matched to clinical indication); or iterative reconstruction. Contrast material: ISOVUE 370; Contrast volume: 100 ml; Contrast route: IV; COMPARISON: CT ABD/PEL W/IV CONTRAST ONLY 11/13/2018 2:21 AM FINDINGS: Lungs: Minimal patchy bibasilar infiltrates and some atelectasis. Calcified granuloma in the right middle lobe. Mediastinum: Minimal hiatal hernia. Liver: The liver attenuation is 120 Hounsfield units and the spleen is 143 Hounsfield units. Gallbladder and bile ducts: Normal. No calcified stones. No ductal dilation. Pancreas: Normal. No ductal dilation. Spleen: Normal. No splenomegaly. Adrenals: Normal. No mass. Kidneys and ureters: Normal. No hydronephrosis. Stomach and bowel: Unremarkable. No obstruction. No mucosal thickening. Appendix: A normal appendix is seen. Intraperitoneal space: Unremarkable. No free air. No significant fluid collection. Vasculature: Unremarkable. No abdominal aortic aneurysm. Lymph nodes: Unremarkable. No enlarged lymph nodes. Bladder: There is bladder wall thickening, however, the bladder is nondistended and is nonspecific. There is slight perivesicular induration. Reproductive: Calcified uterine fibroids with lobular configuration of the uterus. Bones/joints: Lower lumbar facet arthropathy. Soft tissues: Small cystic area in the lateral right pelvis measuring 13 x 20 x 21 mm. Subcutaneous nodule beneath the skin posterior to the right hip measuring 33 x 23 x 35 mm consistent with sebaceous cyst. IMPRESSION: 1. Minimal patchy bibasilar infiltrates and some atelectasis which is similar to the prior study of 11/13/2018. 2. Minimal hiatal hernia. 3. There is bladder wall thickening, however, the bladder is nondistended and is nonspecific. There is some perivesicular induration and cystitis is not excluded. 4. Cyst in the lateral right pelvis measuring 13 x 20 x 21 mm which is unchanged. 5. Sebaceous cyst posterior to the right hip which is unchanged. 6. Lobular uterus with calcifications consistent with fibroids. Electronically signed by: Emmanuel Pittman On 11/19/2018 22:20:08 PM
[2018-11-19 23:05] LABS: APPEARANCE, URINE CLEAR (CLEAR); BACTERIA, URINE AUTO NEGATIVE (NEGATIVE); BILIRUBIN, URINE AUTO NEGATIVE (NEGATIVE); BLOOD, URINE BLOOD NEGATIVE (NEGATIVE); COLOR, URINE STRAW (YELLOW); GLUCOSE, URINE (UA) AUTO NEGATIVE (NEGATIVE); KETONE, URINE AUTO NEGATIVE (NEGATIVE); LEUKOCYTE ESTERASE, URINE AUTO NEGATIVE (NEGATIVE); NITRITE, URINE AUTO NEGATIVE (NEGATIVE); PROTEIN, URINE AUTO NEGATIVE (NEGATIVE); RBC, URINE AUTO 1 /HPF (0-3); SPECIFIC GRAVITY URINE AUTO 1.046 (1.002-1.035); SQUAMOUS EPITHELIAL CELL UR AU 2 /HPF (0-6); UROBILINOGEN, URINE AUTO 0.2 mg/dL (0.0-2.0); WBC, URINE AUTO 2 /HPF (0-3)
[2018-11-20] MEDS ORDERED: SULF1TAB93 PO (00:43)
[2018-11-20] MEDS: D5W/0.9% SODIUM CHLORIDE 1,000 ML IV SCH ×2 (01:28→15:31)
[2018-11-20] MEDS ORDERED: MAALOX 30 ML SUSP *UDC PO PRN (01:30)
[2018-11-20] MEDS ORDERED: MOM 30ML SUSPENSION UDC PO PRN (01:30)
[2018-11-20] MEDS ORDERED: ACETAMINOPHEN TAB 650MG DOSE (2X325MG) PO PRN (01:30)
[2018-11-20] MEDS ORDERED: ONDANSETRON 4MG/2ML VIAL (J2405) IV PRN (01:45)
[2018-11-20] MEDS ORDERED: PANTOPRAZOLE 40MG INJ (PROTONIX) (C9113) IV ONE (01:45)
[2018-11-20] MEDS ORDERED: LORazepam 2 MG TAB PO PRN (01:45)
--- NOTE | 2018-11-20 02:41 | HPEPDOC ---
General Date of Admission Nov 19, 2018 at 17:31 Date of Service: Nov 20, 2018 Chief Complaint The patient is a 73-year-old female admitted with a reason for visit of Coffee Ground Emesis. History of Present Illness Ms. Pimentel is a 73 years old woman with advanced dementia who is non-verbal at baseline. She was recently admitted for pyelonephritis a week ago. She was brought from [place] to ER last night for vomiting coffee ground. No detail information is available. In the ER, pt had normal vitals; afebrile. Labs are fine. Hb 11.5, Cr 0.79. CT abd/pelv: no acute findings (old findings similar to one week ago). PAST MEDICAL HISTORY: Dementia non-verbal, Endometrial polyp, Post menopausal bleeding, Leiomyomata uteri, Tonsillectomy PAST SURGICAL HISTORY: 1. Excision of polyp 2. Dilatation and curettage 3. Suturing of cervix FAMILY HISTORY: Maternal grandmother has iabetes, Father from a ruptured aortic aneurysm. Mother had lung cancer. Home Medications Scheduled Polyethylene Glycol 3350 (Miralax) 17 Gm Powd.pack, 17 GM PO DAILY, (Reported) AFTER 3 DAYS NO BM Quetiapine Fumarate (Quetiapine Fumarate) 25 Mg Tablet, 25 MG PO QHS, (Reported) Sertraline HCl (Sertraline HCl) 50 Mg Tablet, 50 MG PO QHS, (Reported) Sulfamethoxazole/Trimethoprim (Sulfamethoxazole-Tmp Ds Tablet) 1 Each Tablet, 1 TAB PO BID, (Reported) STARTED 11/15/2018 Valproic Acid (As Sodium Salt) (Valproic Acid) 250 Mg/5 Ml Solution, 500 MG PO QHS, (Reported) Scheduled PRN Lactose-Reduced Food (Ensure Original) 237 Ml Liquid, 237 ML PO TID PRN for MEAL REPLACEMENT, (Reported) Lorazepam (Lorazepam) 2 Mg Tablet, 2 MG PO QID PRN for SEIZURES, (Reported) COULD BE GIVEN EVERY 15 MINUTES Allergies Coded Allergies: lisinopril (Verified Allergy, Mild, RASH, 11/13/18) Social History * Smoker: Denies Alcohol: Denies Drugs: denies A-FIB/CHADSVASC A-FIB History Current/History of A-Fib/PAF?: No Review of Systems Other systems Unable to obtain because pt is non verbal Physical Examination General Exam: Positive: Alert, No Acute Distress, Other (pt doesnot communicate or follow commands at baseline) Eye Exam: Positive: PERRLA, Conjunctiva & lids normal ENT Exam: Positive: Atraumatic Neck Exam: Positive: Supple; Negative: JVD Chest Exam: Positive: Clear to auscultation, Normal air movement Heart Exam: Positive: Rate Normal, Regular Rhythm Abdomen Exam: Positive: Normal bowel sounds, Soft; Negative: Tenderness Extremity Exam: Negative: Edema, Normal pulses Skin Exam: Positive: Nl turgor and temperature; Negative: Rash Neuro Exam: Positive: Normal Tone Psych Exam: Negative: Anxiety Vital Signs Vital Signs Date Time Temp Pulse Resp B/P (MAP) Pulse Ox O2 Delivery O2 Flow Rate FiO2 11/20/18 02:01 77 171/81 (111) 94 Room Air 11/20/18 00:30 18 11/19/18 17:45 98.7 Laboratory Data Labs 24H Laboratory Tests 2 11/19/18 17:40: Immature Granulocyte % (Auto) 0.5, White Blood Count 10.8H, Red Blood Count 3.60L, Hemoglobin 11.5L, Hematocrit 34.7L, Mean Corpuscular Volume 96.4H, Mean Corpuscular Hemoglobin 31.9, Mean Corpuscular Hemoglobin Concent 33.1, Red Cell Distribution Width 12.1, Platelet Count 249, Neutrophils (%) (Auto) 73.7H, Lymphocytes (%) (Auto) 11.6L, Monocytes (%) (Auto) 11.4H, Eosinophils (%) (Auto) 2.2, Basophils (%) (Auto) 0.6, Neutrophils # (Auto) 8.0, Lymphocytes # (Auto) 1.3L, Monocytes # (Auto) 1.2H, Eosinophils # (Auto) 0.2, Basophils # (Auto) 0.1, Nucleated Red Blood Cells % (auto) 0.0, Prothrombin Time 13.3, Prothromb Time International Ratio 1.04, Anion Gap 9, Glomerular Filtration Rate > 60.0, Calcium Level 8.4L, Aspartate Amino Transf (AST/SGOT) 19, Alanine Aminotransferase (ALT/SGPT) 17, Alkaline Phosphatase 64, Total Bilirubin < 0.1L, Direct Bilirubin < 0.1, Total Creatine Kinase 57, Creatine Kinase MB 1.5, Creatine Kinase MB Relative Index 2.63, Troponin I < 0.02, Total Protein 6.5, Albumin 3.0L, Albumin/Globulin Ratio 0.86L, Lipase 124 11/19/18 22:56: Urine Appearance CLEAR, Urine Color STRAW, Urine pH 7.0, Urine Specific [place] 1.046, Urine Protein NEGATIVE, Urine Glucose (UA) NEGATIVE, Urine Ketones NEGATIVE, Urine Urobilinogen 0.2, Urine Bilirubin NEGATIVE, Urine Leukocyte Esterase NEGATIVE, Urine Blood NEGATIVE, Urine Nitrite NEGATIVE, Urine WBC (Auto) 2, Urine RBC (Auto) 1, Urine Hyaline Casts (Auto) 0, Urine Bacteria (Auto) NEGATIVE, Urine Squamous Epithelial Cells 2, Urine Sperm (Auto) CBC/BMP Laboratory Tests 11/19/18 17:40 Red Blood Count 3.60 L, Mean Corpuscular Volume 96.4 H, Mean Corpuscular Hemoglobin 31.9, Mean Corpuscular Hemoglobin Concent 33.1, Red Cell Distribution Width 12.1, Neutrophils (%) (Auto) 73.7 H, Lymphocytes (%) (Auto) 11.6 L, Monocytes (%) (Auto) 11.4 H, Eosinophils (%) (Auto) 2.2, Basophils (%) (Auto) 0.6, Neutrophils # (Auto) 8.0, Lymphocytes # (Auto) 1.3 L, Monocytes # (Auto) 1.2 H, Eosinophils # (Auto) 0.2, Basophils # (Auto) 0.1 Microbiology Microbiology 11/19/18 Urine Culture, Received Pending Assessment/Plan Coffee Ground Vomiting, suspect GI bleeding - Keep in Obs - Serial H/H - IV Protonix - Pt is too frail to undergo scoping; conservative management - Anti-emetic prn - aspiration precaution - Clear liquid diet - home meds Plan / VTE VTE Prophylaxis Ordered?: Yes VTE Exclusion Mechanical Proph: N/A:VTE Prophy Ordered VTE Exclusion Pharmacological: Bleeding Risk Plan IVF: Continue Diet: Advance Activity: Continue Current Diagnostics: Repeat Labs in AM Anticipated Discharge: [facility] MARQUITA BERNAL MD Nov 20, 2018 02:41
[2018-11-20 02:45] VITALS: BP 120/80
[2018-11-20 06:00] VITALS: BP 123/81
[2018-11-20 08:53] LABS: HEMATOCRIT 29.4 % (36.0-47.0); HEMOGLOBIN 9.8 g/dl (12.0-15.5); MEAN CORPUSCULAR HEMOGLOBIN 31.2 pg (27.0-33.0); MEAN CORPUSCULAR HGB CONC 33.3 g/dl (32.0-36.5); MEAN CORPUSCULAR VOLUME 93.6 fl (80.0-96.0); PLATELET COUNT, AUTOMATED 235 10^3/uL (150-450); RED BLOOD COUNT 3.14 10^6/uL (4.00-5.40)
[2018-11-20] MEDS ORDERED: BACTRIM 160MG/800MG DS TAB PO SCH (09:00)
[2018-11-20 09:11] LABS: BLOOD UREA NITROGEN 6 MG/DL (7-18); CALCIUM LEVEL 7.9 MG/DL (8.8-10.2); CARBON DIOXIDE LEVEL 24 MEQ/L (21-32); CHLORIDE LEVEL 109 MEQ/L (98-107); GLOMERULAR FILTRATION RATE > 60.0 (>39); GLUCOSE, FASTING 93 MG/DL (70-100); POTASSIUM SERUM 3.7 MEQ/L (3.5-5.1); SODIUM LEVEL 141 MEQ/L (136-145)
--- NOTE | 2018-11-20 10:05 | IPNPDOC ---
Text Note Date of Service The patient was seen on 11/20/18. 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 Per ED, SrVinny Pimentel had 1 episode of coffee ground emesis 1 hour prior to presentation at the ER, as well as, 1 previous episode of similar emesis a week prior to her current presentation. She has advanced dementia and is nonverbal. She is a resident of [facility]. Active Medications: * Pantoprazole 40 mg * Ondansetron 4 mg * Lorazepam 2 mg * Acetaminophen 650 mg * Magnesium Hydroxide * Aluminum Hydrozide Magnesium Hydroxide/Simethicone * Dextrose/Sodium Chloride 1000ml@75 mL/hour * Quetiaprine Fumarate 25 mg * Sertraline HCl 50 mg * Valproic acid 500 mg Review of systems: Unable to obtain-patient nonvocal Objective: Vitals: * BP: 123/81 mm Hg * Temperature: 98.4F * RR: 16 * HR: 86 * O2: 93% Physical Exam: * General: Thin woman with advanced Dementia. She was asleep upon examination and had recently eaten breakfast. She opens her eyes to stimulation but is extremely withdrawn and does not/can not respond to questions with any vocalization. * Heart: Normal S1/S2 heart sounds with no audible rubs, gallops, or murmurs n oted. * Lungs: Clear to auscultation B/L. * Gastrointestinal: Normal bowel sounds present in all 4 quadrants. Pt moves her arms to block palpation of her abdomen. * Psychological: Dementia noted. Pt seems slightly agitated upon waking up. * Skin/extremities: No ulcers or rashes noted. Extremities are well perfused and warm to touch. * Neurologic: Unchanged. Status exam Labs: * CBC 11/19 * WBC 10.8 * Hgb 11.5 * CBC 11/20 * WBC 7.0 * Hgb 9.8 * Urinalysis 11/19 * Clear urine with no bacteria, nitrites, ketones, protein Assessment and Plan: 1. Coffee Ground Vomiting: No vomiting since admission. Continue treatment with Pantoprazole 40 mg IV and Ondansetron 4 mg IV PRN nausea. 2. Anemia: Pt hemoglobin was 11.5 on admission and subsequently fell to 9.8 on 11/20. Serial H&Hs are being performed Q8H to assess for possible GI bleed and have been stable between 9-10 since 11/20. 3. Dementia: Continue providing comforting and appropriate care. Continue mood stabilization with Quetiaprine Fumarate 25 mg, Sertraline HCl 50 mg, and Lorazepam 2 mg 4. Seizure prophylaxis: Continue to treat with Valproic Acid. 5. Disposition: Discharge pending stabilization of hemoglobin and GI consult for possible GI bleed. VS,Fishbone, I+O VS, Fishbone, I+O Laboratory Tests 11/19/18 17:40 Red Blood Count 3.60 L, Mean Corpuscular Volume 96.4 H, Mean Corpuscular Hemoglo bin 31.9, Mean Corpuscular Hemoglobin Concent 33.1, Red Cell Distribution Width 12.1, Neutrophils (%) (Auto) 73.7 H, Lymphocytes (%) (Auto) 11.6 L, Monocytes (%) (Auto) 11.4 H, Eosinophils (%) (Auto) 2.2, Basophils (%) (Auto) 0.6, Neutrophils # (Auto) 8.0, Lymphocytes # (Auto) 1.3 L, Monocytes # (Auto) 1.2 H, Eosinophils # (Auto) 0.2, Basophils # (Auto) 0.1 11/20/18 08:17 Red Blood Count 3.14 L, Mean Corpuscular Volume 93.6, Mean Corpuscular Hemoglobin 31.2, Mean Corpuscular Hemoglobin Concent 33.3, Red Cell Distribution Width 12.3, Calcium Level 7.9 L Vital Signs Date Time Temp Pulse Resp B/P (MAP) Pulse Ox O2 Delivery O2 Flow Rate FiO2 11/20/18 06:00 98.4 86 16 123/81 (95) 93 11/20/18 02:01 Room Air I&O- Last 24 Hours up to 6 AM 11/20/18 06:00 Intake Total 1125 ml Output Total 0 ml Balance 1125 ml ZACHARY MILLARD OMS-3 Nov 20, 2018 10:05 MELONY GILES MD Nov 22, 2018 09:52
[2018-11-20] MEDS: PANTOPRAZOLE 40MG INJ (PROTONIX) (C9113) IV SCH ×2 (10:18→22:17)
[2018-11-20 14:00] VITALS: BP 104/65
[2018-11-20 17:48] LABS: HEMOGLOBIN 10.1 g/dl (12.0-15.5)
[2018-11-20 22:00] VITALS: BP 127/81
[2018-11-20] MEDS: VALPROIC ACID SYRUP 250 MG/5 ML UDC PO SCH (22:17)
[2018-11-20] MEDS: QUEtiapine FUMARATE 25 MG TAB PO SCH (22:17)
[2018-11-20] MEDS: SERTRALINE HCL 50 MG TAB PO SCH (22:17)
[2018-11-21 01:19] LABS: HEMATOCRIT 27.3 % (36.0-47.0); HEMOGLOBIN 9.2 g/dl (12.0-15.5)
[2018-11-21] MEDS: D5W/0.9% SODIUM CHLORIDE 1,000 ML IV SCH (03:22)
[2018-11-21 06:00] VITALS: BP 128/58
[2018-11-21 07:47] LABS: HEMATOCRIT 28.5 % (36.0-47.0); HEMOGLOBIN 9.3 g/dl (12.0-15.5); MEAN CORPUSCULAR HGB CONC 32.6 g/dl (32.0-36.5); PLATELET COUNT, AUTOMATED 210 10^3/uL (150-450); WHITE BLOOD COUNT 3.9 10^3/uL (4.0-10.0)
[2018-11-21 08:06] LABS: BLOOD UREA NITROGEN 3 MG/DL (7-18); CALCIUM LEVEL 7.9 MG/DL (8.8-10.2); CARBON DIOXIDE LEVEL 25 MEQ/L (21-32); CHLORIDE LEVEL 113 MEQ/L (98-107); CREATININE FOR GFR 0.66 MG/DL (0.55-1.30); GLOMERULAR FILTRATION RATE > 60.0 (>39); GLUCOSE, FASTING 88 MG/DL (70-100); POTASSIUM SERUM 3.7 MEQ/L (3.5-5.1); SODIUM LEVEL 144 MEQ/L (136-145)
[2018-11-21] MEDS: PANTOPRAZOLE 40MG INJ (PROTONIX) (C9113) IV SCH ×2 (08:29→21:13)
--- NOTE | 2018-11-21 09:23 | IPNPDOC ---
Text Note Date of Service The patient was seen on 11/21/18. 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 She has advanced dementia with subsequent aphasia. She has not had any more emetic episodes since her admission to [facility]. I spoke to her health care proxy who mentioned that she was interested in possibly pursuing a EGD to rule out a possible upper GI bleed. Speech therapy saw Sr. Pimentel on 11/20 and recommended thickened liquids to prevent aspiration. Active Medications: * Pantoprazole 40 mg IV BID * Ondansetron 4 mg IV PRN N/V * Lorazepam 2 mg QID PRN Seizures * Acetaminophen 650 mg PRN pain or fever * Magnesium Hydroxide 30 ml PRN constipation * Aluminum Hydrozide Magnesium Hydroxide/Simethicone 30 ml PRN Dyspepsia * Dextrose/Sodium Chloride 1000ml@75 mL/hour * Quetiaprine Fumarate 25 mg * Sertraline HCl 50 mg 50 mg * Valproic acid 500 mg for seizure Review of systems: Unable to obtain-patient nonvocal Objective: Vitals: * BP: 128/58 mm Hg * Temperature: 97.3 F * RR: 18 * HR: 63 * O2: 96% Physical Exam: * General: Thin female with advanced dementia. Extremely withdrawn and nonresponsive to questions. * Heart: Normal S1/S2 heart sounds with no audible rubs, gallops, or murmurs noted. * Lungs: Clear to auscultation B/L * Gastrointestinal: Normal bowel sounds present in all 4 quadrants. * Psychological: Dementia noted. Pt was awake but would not maintain eye contact or respond to questions. * Skin/extremities: No ulcers or rashes noted. Extremities are well perfused and warm to touch. * Neurological: Unchanged at her baseline Labs: CBC 11/19 * WBC 10.8 * Hgb 11.5 CBC 11/20 * WBC 7.0 * Hgb 9.8 CBC 11/21 * WBC 3.9 * Hgb 9.3 Urinalysis 11/19 * Clear urine with no bacteria, nitrites, ketones, protein Assessment and Plan: 1. Coffee Ground Vomiting: No coffee ground vomiting since admission. Continue treatment with Pantoprazole 40 mg IV and Ondansetron 4 mg IV PRN nausea. 2. Anemia: Pt hemoglobin is was 11.5 on admission and subsequently fell to 9.8 on 11/20. Serial H&H are being performed Q8H to assess for possible GI bleed and have been stable since 11/20. 3. Dementia: Continue providing comforting and appropriate care. Continue mood stabilization with Quetiaprine Fumarate 25 mg, Sertraline HCl 50 mg, and Lorazepam 2 mg 4. Seizure prophylaxis: Continue to treat with Valproic Acid. 5. Aspiration Precaution: Pt was seen by Speech Therapy and recommended pureed solids with nectar thickened liquids. 6. Disposition: Discharge pending continued stabilization of her hemoglobin with possible GI consult for potential GI bleed. Will continue PPI treatment post discharge. I saw and evaluated the patient. I agree with the findings and plan of care as documented in the above note Jose FARIAS, I+O Jose FARIAS I+O Laboratory Tests 11/20/18 17:20 11/21/18 01:13 11/21/18 07:35 Red Blood Count 3.00 L, Mean Corpuscular Volume 95.0, Mean Corpuscular Hemoglobin 31.0, Mean Corpuscular Hemoglobin Concent 32.6, Red Cell Distribution Width 12.3, Calcium Level 7.9 L Vital Signs Date Time Temp Pulse Resp B/P (MAP) Pulse Ox O2 Delivery O2 Flow Rate FiO2 11/21/18 06:00 97.3 63 18 128/58 (81) 96 11/20/18 02:01 Room Air I&O- Last 24 Hours up to 6 AM 11/21/18 06:00 Intake Total 1760 ml Output Total 0 ml Balance 1760 ml ZACHARY MILLARD OMS-3 Nov 21, 2018 09:23 MELONY GILES MD Nov 22, 2018 09:51
[2018-11-21 14:00] VITALS: BP 151/62
[2018-11-21 18:17] LABS: HEMATOCRIT 29.2 % (36.0-47.0); HEMOGLOBIN 9.7 g/dl (12.0-15.5)
[2018-11-21] MEDS: VALPROIC ACID SYRUP 250 MG/5 ML UDC PO SCH (21:13)
[2018-11-21] MEDS: SERTRALINE HCL 50 MG TAB PO SCH (21:13)
[2018-11-21] MEDS: QUEtiapine FUMARATE 25 MG TAB PO SCH (21:13)
[2018-11-21 22:00] VITALS: BP 112/85
[2018-11-22 06:00] VITALS: BP 103/67
[2018-11-22 06:47] LABS: HEMOGLOBIN 10.6 g/dl (12.0-15.5); MEAN CORPUSCULAR HGB CONC 33.1 g/dl (32.0-36.5); MEAN CORPUSCULAR VOLUME 96.7 fl (80.0-96.0); PLATELET COUNT, AUTOMATED 241 10^3/uL (150-450); RED BLOOD COUNT 3.31 10^6/uL (4.00-5.40); WHITE BLOOD COUNT 4.4 10^3/uL (4.0-10.0)
[2018-11-22 07:10] LABS: BLOOD UREA NITROGEN 4 MG/DL (7-18); CALCIUM LEVEL 8.2 MG/DL (8.8-10.2); CARBON DIOXIDE LEVEL 28 MEQ/L (21-32); CHLORIDE LEVEL 107 MEQ/L (98-107); CREATININE FOR GFR 0.67 MG/DL (0.55-1.30); GLOMERULAR FILTRATION RATE > 60.0 (>39); GLUCOSE, FASTING 87 MG/DL (70-100); POTASSIUM SERUM 3.6 MEQ/L (3.5-5.1); SODIUM LEVEL 143 MEQ/L (136-145)
[2018-11-22] MEDS: PANTOPRAZOLE 40MG INJ (PROTONIX) (C9113) IV SCH ×2 (08:57→20:49)
--- NOTE | 2018-11-22 09:17 | IPNPDOC ---
Text Note Date of Service The patient was seen on 11/22/18. 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 She has advanced dementia with subsequent aphasia. She still has not had any more emetic episodes since her admission to [facility]. Her health care proxy had been informed that EGD is scheduled for later this afternoon (11/22) and was excited about getting potential confirmation of a current upper GI bleed. Review of systems: Unable to obtain-patient nonvocal Objective: Most Recent Vitals: BP: 103/67 mm Hg Temperature: 97.8 F RR: 17 HR: 68 O2: 97% Physical Exam: General: Pt is sleeping upon exam. Well-nourished female with advanced dementia. Extremely withdrawn and non-responsive to questions. Heart: Normal S1/S2 heart sounds with no audible rubs, gallops, or murmurs noted. Lungs: Clear to auscultation B/L. Gastrointestinal: Normal bowel sounds present in all 4 quadrants. Psychological: Dementia noted Skin/extremities: No ulcers or rashes noted. Extremities are well perfused and warm to touch. Labs: CBC 11/19 Hgb 11.5 CBC 11/20 Hgb 9.8 CBC 11/21 Hgb 9.3 CBC 11/22 Hgb 10.6 Urinalysis 11/19 Clear urine with yeast-like organisms noted. Negative for protein, ketones, blood, or casts. Assessment and Plan: #Coffee Ground Vomiting: No coffee ground vomiting since admission. Continue treatment with Pantoprazole 40 mg IV and Ondansetron 4 mg IV PRN nausea. #Anemia: Pt hemoglobin was 11.5 on admission and subsequently fell to 9.8 on 11/20. Serial H&H are being performed Q8H to assess for possible GI bleed and have been stable since 11/20. Most recent H7H shows improvement with a hemoglobin of 10.6. #Vaginal Candidiasis: Treat with Fluconazole 150 mg PO 1 time dose # Dementia: Continue providing comforting and appropriate care. Continue mood stabilization with Quetiaprine Fumarate 25 mg, Sertraline HCl 50 mg, and Lorazepam 2 mg. # Seizure prophylaxis: Pt has had 2 witnessed seizure-like events in the past 2 years. Most recent event was 1 year ago. Pt described as having myoclonic activity, glossy eyes, and post-ictal confusion. Continue to treat with Valproic Acid prophylaxis. #Aspiration Precaution: Continue with pureed solids with nectar thickened liquids per ST recommendations. # Disposition: Discharge pending EGD results with goal of stabilizing Sr. Haxs hemoglobin and hematocrit I saw and evaluated the patient. I agree with the findings and plan of care as documented in the above note VS,Fishbone, I+O VS, Fishbone, I+O Laboratory Tests 11/21/18 17:24 11/22/18 05:41 Red Blood Count 3.31 L, Mean Corpuscular Volume 96.7 H, Mean Corpuscular Hemoglobin 32.0, Mean Corpuscular Hemoglobin Concent 33.1, Red Cell Distribution Width 12.0, Calcium Level 8.2 L Vital Signs Date Time Temp Pulse Resp B/P (MAP) Pulse Ox O2 Delivery O2 Flow Rate FiO2 11/22/18 06:00 97.8 68 17 103/67 (79) 97 11/20/18 02:01 Room Air I&O- Last 24 Hours up to 6 AM 11/22/18 06:00 Intake Total 550 ml Output Total 0 ml Balance 550 ml ZACHARY MILLARD OMS-3 Nov 22, 2018 09:17 MELONY GILES MD Nov 23, 2018 13:06
[2018-11-22 10:00] VITALS: BP 111/65
[2018-11-22 14:00] VITALS: BP 128/64
[2018-11-22] MEDS ORDERED: DESFLURANE 240 ML INHALANT As Ordered ONE (17:01)
[2018-11-22] MEDS ORDERED: PROPOFOL 200 MG/20 ML VIAL As Ordered ONE (17:01)
[2018-11-22] MEDS ORDERED: LIDOCAINE 2% INJ 100 MG/5 ML SDV (FOR ANES.) As Ordered ONE (17:01)
--- NOTE | 2018-11-22 17:16 | ROOR ---
Patient Name: Tima Pimentel Procedure Date: 11/22/2018 4:52 PM Date of : 1945 Age: 73 Room: Main OR Gender: Female Note Status: Finalized Procedure: Upper Endoscopy + Biopsies Indications: Coffee-ground emesis Providers: Ramiro Steinberg MD Referring MD: 2. Inpatient 2. Inpatient Requesting Provider: Medicines: Monitored Anesthesia Care Complications: No immediate complications. Procedure: Pre-Anesthesia Assessment: - The heart rate, respiratory rate, oxygen saturations, blood pressure, adequacy of pulmonary ventilation, and response to care were monitored throughout the procedure. The Endoscope was introduced through the mouth, and advanced to the second part of duodenum. The upper GI endoscopy was accomplished without difficulty. The patient tolerated the procedure well. Findings: The Z-line was irregular and was found 30 cm from the incisors. Multiple biopsies were obtained with cold forceps for evaluation to rule out Novoa's Esophagus randomly at the gastroesophageal junction. No other significant abnormalities were identified in a careful examination of the stomach. The exam of the duodenum was otherwise normal. Impression: - Z-line irregular, 30 cm from the incisors. - Multiple biopsies were obtained at the gastroesophageal junction. - The examination was otherwise normal. Recommendation: - Patient has a contact number available for emergencies. The signs and symptoms of potential delayed complications were discussed with the patient. Return to normal activities tomorrow. Written discharge instructions were provided to the patient. - Resume previous diet. - [facility] to [facility] care. - The findings and recommendations were discussed with the patient's family. Ramiro Steinberg MD Ramiro Steinberg MD 11/22/2018 5:16:06 PM Electronically signed by Ramiro Steinberg MD Number of Addenda: 0 Note Initiated On: 11/22/2018 4:52 PM Estimated Blood Loss: Estimated blood loss: none.
[2018-11-22] MEDS: SERTRALINE HCL 50 MG TAB PO SCH (20:49)
[2018-11-22] MEDS: QUEtiapine FUMARATE 25 MG TAB PO SCH (20:49)
[2018-11-22] MEDS: VALPROIC ACID SYRUP 250 MG/5 ML UDC PO SCH (20:55)
[2018-11-22 22:00] VITALS: BP 145/70
[2018-11-23 06:00] VITALS: BP 116/86
[2018-11-23 06:07] LABS: HEMATOCRIT 31.7 % (36.0-47.0); HEMOGLOBIN 10.6 g/dl (12.0-15.5); MEAN CORPUSCULAR HEMOGLOBIN 31.2 pg (27.0-33.0); MEAN CORPUSCULAR HGB CONC 33.4 g/dl (32.0-36.5); MEAN CORPUSCULAR VOLUME 93.2 fl (80.0-96.0); PLATELET COUNT, AUTOMATED 262 10^3/uL (150-450)
[2018-11-23 06:34] LABS: BLOOD UREA NITROGEN 7 MG/DL (7-18); CALCIUM LEVEL 8.2 MG/DL (8.8-10.2); CARBON DIOXIDE LEVEL 30 MEQ/L (21-32); CHLORIDE LEVEL 106 MEQ/L (98-107); CREATININE FOR GFR 0.74 MG/DL (0.55-1.30); GLOMERULAR FILTRATION RATE > 60.0 (>39); GLUCOSE, FASTING 87 MG/DL (70-100); POTASSIUM SERUM 3.8 MEQ/L (3.5-5.1); SODIUM LEVEL 141 MEQ/L (136-145)
[2018-11-23] MEDS: PANTOPRAZOLE 40MG INJ (PROTONIX) (C9113) IV SCH (07:57)
[2018-11-23] MEDS ORDERED: PROT1TAB2 PO (10:59)
[2018-11-23 14:00] VITALS: BP 121/84
--- NOTE | 2018-11-23 14:02 | DS.PDOC ---
Discharge Summary General Date of Admission Nov 22, 2018 at 12:11 Date of Discharge 11/23/18 Attending Physician: MELONY GILES MD Specialist/Consultants Involve: Ramiro Steinberg Discharge Summary Primary care physician: Micheal Pittman M.D. PROCEDURES PERFORMED DURING STAY: Esophagogastroduodenoscopy ADMITTING/DISCHARGE DIAGNOSES: 1. Coffee-ground emesis 2. Anemia 3. End-stage dementia 4. Aspiration 5. Chronic indwelling catheter COMPLICATIONS/CHIEF COMPLAINT: Coffee-ground emesis HISTORY OF PRESENT ILLNESS/HOSPITAL COURSE: Patient is a 73-year-old female who presented to the emergency department on 11/19/2017 with a couple episodes of coffee-ground emesis. Patient was recently discharged from the hospital for nausea and vomiting and pyelonephritis a week prior. In the emergency room, patient did have 1 episode of coffee-ground emesis and was admitted in the hospital for further evaluation. Patient received fluid resuscitation. Patient did not have any more episodes of vomiting while hospitalized. A speech evaluation was done and recommended a pured solid diet with nectar thickened liquids. Gastroenterology was consulted and performed an esopha gogastroduodenoscopy. The EGD showed some abnormalities of the Z line in which biopsies were taken and the pathology is pending. The stomach and duodenum were both normal. No evidence of bleeding could be found. Recommendations were to continue PPI therapy. Patient was also found to have 30,000 colony-forming units of a yeast like organism in her urine. Patient never had a leukocytosis or fever and this is common in older adults who have been treated with antibiotics recently. This can be monitored and if the patient's urine starts to change further workup can be done however, it is common to have asymptomatic funguria. Patient's hemoglobin remained stable throughout her hospitalization and on 11/23/2018, patient was deemed ready for discharge. Patient was discharged back to the [facility] DISCHARGE MEDICATIONS: Please see below. ALLERGIES: Please see below. PHYSICAL EXAMINATION ON DISCHARGE: Vitals: (see below) General: No acute distress, laying comfortably in bed. HEENT: Moist mucous membranes. Neck: No JVD or lymphadenopathy Cardiac: RRR, No murmurs Pulm: Clear to auscultation b/l. No wheezing, rhonchi Abd: Patient did not appear to be in discomfort during palpation of her abdomen. Ext: No edema or cyanosis LABORATORY DATA: Please see below. IMAGING: A CT of the abdomen and pelvis with IV contrast performed on 11/19/2018 showed minimal patchy bibasilar infiltrates and some atelectasis which is similar to prior study on 11/13/2018. Minimal hiatal hernia. There is bladder wall thickening, however, the bladder is nondistended and is nonspecific. There is some perivesicular induration and cystitis is not excluded. Cyst in the lateral right pelvis measuring 13 x 20 x 21 mm which is unchanged. Sebaceous cyst posterior to the right hip which is unchanged. Lobular uterus with calcifications consistent with fibroids. PROGNOSIS: Fair ACTIVITY: As tolerated. DIET: Pured solids with nectar thickened liquids DISCHARGE PLAN/DISPOSITION: [facility] to [facility] DISCHARGE INSTRUCTIONS: 1. Follow-up with primary care provider within 5-10 days. 2. Start Protonix 40 mg daily. 3. Follow-up with gastroenterology. 4. Start a pured solid diet with nectar thickened liquids. 5. Return to ED if symptoms worsen. DISCHARGE CONDITION: Stable. I saw and evaluated the patient. I agree with the findings and plan of care as documented in the documenters note. I spent 45 minutes coordinating this patient's discharge. Vital Signs/I&Os Vital Signs Date Time Temp Pulse Resp B/P (MAP) Pulse Ox O2 Delivery O2 Flow Rate FiO2 11/23/18 06:00 97.0 60 19 116/86 (96) 96 11/22/18 17:18 10 11/20/18 02:01 Room Air I&O- Last 24 Hours up to 6 AM 11/23/18 06:00 Intake Total 420 ml Output Total 0 ml Balance 420 ml Laboratory Data Labs 24H Laboratory Tests 2 11/23/18 05:34: Nucleated Red Blood Cells % (auto) 0.0, Anion Gap 5L, Glomerular Filtration Rate > 60.0, Blood Urea Nitrogen 7#, Creatinine 0.74, Sodium Level 141, Potassium Level 3.8, Chloride Level 106, Carbon Dioxide Level 30, Calcium Level 8.2L CBC/BMP Laboratory Tests 11/23/18 05:34 Red Blood Count 3.40 L, Mean Corpuscular Volume 93.2, Mean Corpuscular Hemoglobin 31.2, Mean Corpuscular Hemoglobin Concent 33.4, Red Cell Distribution Width 11.9, Calcium Level 8.2 L Microbiology Microbiology 11/19/18 Urine Culture - Final, Complete Yeast Like Organism Discharge Medications Scheduled Pantoprazole Sodium (Protonix) 40 Mg Tablet.dr, 1 TAB PO DAILY Polyethylene Glycol 3350 (Miralax) 17 Gm Powd.pack, 17 GM PO DAILY, (Reported) AFTER 3 DAYS NO BM Quetiapine Fumarate (Quetiapine Fumarate) 25 Mg Tablet, 25 MG PO QHS, (Reported) Sertraline HCl (Sertraline HCl) 50 Mg Tablet, 50 MG PO QHS, (Reported) Valproic Acid (As Sodium Salt) (Valproic Acid) 250 Mg/5 Ml Solution, 500 MG PO QHS, (Reported) Scheduled PRN Lactose-Reduced Food (Ensure Original) 237 Ml Liquid, 237 ML PO TID PRN for MEAL REPLACEMENT, (Reported) Lorazepam (Lorazepam) 2 Mg Tablet, 2 MG PO QID PRN for SEIZURES, (Reported) COULD BE GIVEN EVERY 15 MINUTES Allergies Coded Allergies: lisinopril (Verified Allergy, Mild, RASH, 11/13/18) ANU DALAL DO Nov 23, 2018 14:02 MELONY GILES MD Nov 25, 2018 14:07
--- NOTE | 2018-11-24 08:39 | CR ---
DATE OF CONSULTATION: This is a 73-year white female admitted to [facility] ([facility]) for an apparent single episode of coffee-ground emesis. The patient is nonverbal and has dementia. We are unable to obtain any history from the patient. She has a history of pyelonephritis in the past. Past surgical history is positive for myeloma of the uteri, tonsillectomy, and endometrial polyp. Family history is positive for diabetes, abdominal aortic aneurysm (AAA) in her father and mother had lung cancer. Medications include: - MiraLAX - sertraline - Bactrim - valproic acid ALLERGIES to LISINOPRIL. SOCIAL HISTORY: Cigarettes: None. Alcohol: None. Drugs: None. REVIEW OF SYSTEMS: Noncontributory. PHYSICAL EXAM: Thin, white female, in no obvious acute distress. Chest is clear. Cardiovascular exam showed a regular rhythm. No murmurs or gallops. Normal physiological split S1, S2. Abdomen: Soft, nontender. No masses, guarding, rebound or hepatosplenomegaly. Bowel sounds positive. Extremities: No cyanosis, clubbing or edema. Jcarlos's negative. Laboratory studies on this admission includes a white count 10.8, H/H 11.5 and 34.7. The patient's coagulation showed an INR of 1.04. Chemistry was normal. Albumin was 3.0. Renal function was normal. Imaging studies include abdominal CT on 11/19/2018, which showed a small hiatal hernia, bladder wall thickening of a nonspecific cyst in the right pelvis and another cyst in the right hip, and lobular uterus with calcifications and fibroids. ANALYSIS: Coffee ground emesis of unknown etiology. Plan will be to set the patient up for an upper endoscopy for evaluation of any possible source.
== END 2018-11-23 16:30 | disposition home or self-care (01) ==
LOC: M ED 17:30 → EDBD 17:30 → M ED INP 17:31 → M MSPAV 11-20 02:37 → INTOOBSV 11-22 12:11 → OBSVTOIN 11-22 12:11
PROVIDERS: ADMIT Internal Medicine; ATTEND Internal Medicine
DX: R11.10 Vomiting, unspecified (principal); R47.01 Aphasia; D64.9 Anemia, unspecified; F03.90 Unspecified dementia, unspecified severity, without behavioral disturbance, psychotic disturbance, mood disturbance, and anxiety; Z66 Do not resuscitate; Z79.899 Other long term (current) drug therapy; Z88.8 Allergy status to other drugs, medicaments and biological substances
CPT/HCPCS: 36415; 43239; 74177; 80047; 80048; 80076; 81001; 82550; 82553; 83690; 84484; 85014; 85018; 85025; 85027; 85610; 88305; 92526; 92610; 93005; 93041; 96361; 96374; 96376; 99285; C9113; G0378; Q9967

== ENCOUNTER → 2018-11-27 | Outpatient (REF) | payer MEDICARE, MEDICAID ==
[~2018-11-27] MED LIST changes: +PROT1TAB2 PO
== END ==
LOC: M LAB REF 15:56
PROVIDERS: ATTEND Internal Medicine
DX: G30.9 Alzheimer's disease, unspecified (principal); R62.7 Adult failure to thrive